=== PATIENT | female | born 1950 | race Caucasian/White ===

== ENCOUNTER → 2022-11-20 13:49 | Outpatient (REF) | payer MEDICARE, OTHER, SELFPAY ==
--- NOTE | 2022-11-20 13:58 | CA_ITS ---
Transthoracic Echocardiogram Patient (Last, First, Middle): Marcy Mcintyre, Gender: Female Date of : 1950 Age: 72 Procedure Date: 11/20/2022 Procedure Type: Transthoracic Echocardiogram Location: OP Height: 154.94 cm Weight: 57.61 kg BSA: 1.56 m2 Heart Rate: bpm BP: 140 / 70 mmHg Naturopathic Doctor: TO Referring MD: Ivette Hull MD Symptoms: I42.9 CARDIOMYOPATHY Study Quality: Fair ECG Rhythm: Sinus Conclusions: - The left ventricular systolic function is normal. The visually estimated ejection fraction is between 65-70%. - There is moderate mitral annular calcification. There is mild mitral valve regurgitation. - There is mild tricuspid valve regurgitation. Findings Left Ventricle Normal left ventricular cavity size. There is normal left ventricular wall thickness. The left ventricular systolic function is normal. The visually estimated ejection fraction is between 65-70%. There is no evidence of regional wall motion abnormalities. Diastolic function is normal for age. Right Ventricle Normal right ventricular cavity size and systolic function. Atria Both atria are normal in size. Aortic Valve There is a normal trileaflet aortic valve. There is no aortic valve stenosis. There is no aortic valve regurgitation. Mitral Valve There is moderate mitral annular calcification. There is mild mitral valve regurgitation. There is no mitral valve stenosis. Pulmonic Valve There is trace pulmonic valve regurgitation. Tricuspid Valve There is mild tricuspid valve regurgitation. There is no evidence of pulmonary hypertension. Great Vessels The asc aorta is normal in size. Venous The inferior vena cava is normal in size and collapses greater than 50% with inspiration. Pericardium/Pleural There is no evidence of pericardial effusion. Prior Study Comparison No prior study available for comparison. Measurements 2D Linear Measurements IVSd: 1.02 0.6-0.9/0.6-1.0 cm LVIDd: 3.94 3.9-5.3/4.2-5.9 cm LVIDd Index: 2.53 2.4-3.2/2.2-3.1 cm/m2 LVIDs: 1.80 2.0-3.6 cm LVPWd: 0.65 0.7-1.1 cm LA Diam: 3.00 2.7-3.8/3.0-4.0 cm LAIDs Index: 1.92 1.5-2.3 cm/m2 LV Mass: 119.72 67-162/88-224 g LV Mass Index: 76.74 43-95/49-115 g/m2 LVOT Diam: 1.80 3.0+(-)1.3 cm 2D Systolic Function EF 4C: 76.30 >55% Mitral Valve MV VTI: 0.53 MV Pk Alli: 1.61 MV Mn Alli: 0.86 MV Pk Grad: 10.00 MV Mn Grad: 4.00 MV Pk E: 1.21 MV PK A: 1.52 MV Decel Time: 314.00 E/A: 0.80 E'Lateral: 9.36 E'Medial: 6.64 E/E' Med: 18.20 E/E' Lat: 12.90 PHT: 89.00 MVA PHT: 2.47 MVA Continuity: 1.53 Decel [place]: 3.97 Aortic Valve AoV Pk Alli: 1.68 AoV Mn Alli: 1.21 AoV VTI: 0.38 AoV Pk Grad: 11.00 Aov Mn Grad: 6.00 ARABELLA Cont.VTI: 2.11 LVOT LVOT Pk Alli: 1.45 LVOT Mn Alli: 0.94 LVOT VTI: 0.32 LVOT Pk Grad: 8.00 LVOT Mn Grad: 4.00 LVOT Diam: 1.80 LVOT Area: 2.54 Diastolic Function MV Pk E: 1.21 MV Pk A: 1.52 E/A: 0.80 E'Medial: 6.64 E/E' Med: 18.20 E' Laterial: 9.36 E/E' Lat: 12.90 Right Ventricle TAPSE (mm): 21.30 TVS' Alli: 11.20 Tricuspid Valve TR Pk Alli: 2.59 TR Pk Grad: 27.00 RA Press: 3.00 RVSP: 30.00 Great Vessels Aorta Sinus of Valsalva: 2.76 2.0-3.5 cm Ao Asc: 3.00 2.1-3.4 cm Updated in Other Vendor System with Status of Final Ruben Bergeron MD electronically signed on 11/21/2022 1:56:48 PM with status of Final
== END ==
LOC: HO.CARD 13:49
PROVIDERS: PCP Family Medicine; Visit Provider Family Medicine
DX: I42.9 Cardiomyopathy, unspecified (principal)
CPT/HCPCS: 93306